=== PATIENT | female | born 1935 | race Caucasian/White ===

== ENCOUNTER 2020-12-28 17:23 | Inpatient (IN) ==
--- NOTE | 2020-12-28 17:34 | Emergency Department Note ---
HPI <Olga Michelle PA-C - Last Filed: 12/28/20 20:45> General Chief complaint: Cold/Flu Symptoms Stated complaint: fatigue, nausea,cough Time Seen by Provider: 12/28/20 17:32 Source: patient Mode of arrival: ambulatory History of Present Illness HPI Narrative: This is an 85-year-old female patient who was sent over from [facility] with reports of O2 saturations 71% on room air. It is noted that they had difficulty getting a good pleth waveform on the patient due to cold extremities. The patient is not complaining of significant shortness of breath. She is complaining of rigors and chills as well as weakness and some mild abdominal pain for the last 4 days. She denies hematuria or dysuria. Denies flank pain. Denies diarrhea, melena or hematochezia. Abdominal surgeries include a hysterectomy, cholecystectomy and appendectomy. She's had some nausea but no vomiting. She's had poor appetite with poor oral intake. She is vaccinated for Covid. No known exposures. She does take blood pressure medication but has been holding this for the last couple of days because she notes that her blood pressures have been low. Related Data Home Medications Medication Instructions Recorded Confirmed vitamins A,C,M-ibkl-knbojc 14,320 1 cap PO BID 03/09/18 12/28/20 unit-226 mg-200 unit capsule Vitamin B 12 1,000 mcg PO .QD 05/25/19 12/28/20 calcium carbonate-vitamin D3 600 1 tab PO BID tab 05/25/19 12/28/20 mg-125 unit tablet cholecalciferol (vitamin D3) 25 1,000 unit PO QHS cap 05/25/19 12/28/20 mcg (1,000 unit) capsule acetaminophen 325 mg capsule 325 mg PO ONCE PRN 11/20/20 12/28/20 Previous Rx's Medication Instructions Recorded fluoxetine 20 mg capsule 20 mg PO QDAY #90 cap 03/27/20 atorvastatin 20 mg tablet 20 mg PO QDAY #90 tab 05/09/20 losartan 100 mg tablet 100 mg PO QDAY #90 tab 05/09/20 metformin 500 mg tablet 500 mg PO BID #180 tab 05/09/20 potassium chloride 10 mEq 20 meq PO BID #360 tab 05/09/20 tablet,extended release triamterene 37.5 1 tab PO QDAY #90 tab 05/09/20 mg-hydrochlorothiazide 25 mg tablet amlodipine 5 mg tablet 5 mg PO QDAY #90 tab 11/19/20 estradiol 1 mg tablet 1 mg PO QDAY #90 tab 12/13/20 Allergies Allergy/AdvReac Type Severity Reaction Status Date / Time Sulfa (Sulfonamide Allergy Mild Rash Verified 12/28/20 17:12 Antibiotics) Review of Systems <Olga Michelle PA-C - Last Filed: 12/28/20 20:45> ROS ROS Narrative: Narrative: All systems ED: reviewed and negative except as stated. 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) Osteoarthritis (Chronic) Metabolic Syndrome X (Chronic) Colon polyp (Chronic) Bronchitis (Chronic) Skin lesion (Chronic) CKD (chronic kidney disease), stage III (Chronic) Fatigue (Chronic) Tremor (Chronic) Incontinence (Chronic) Right hip pain (Acute) Hypertensive kidney disease with CKD stage III (Chronic) Medicare annual wellness visit, subsequent (Acute) Medicare annual wellness visit, subsequent (Acute) Rib pain on left side (Acute) Sepsis (Acute) Acute UTI (Acute) HANNAH (acute kidney injury) (Acute) Acute hyponatremia (Acute) Medical History (Updated 12/29/20 @ 13:27 by Kristin Weber DO) Asymptomatic varicose veins of lower extremity 05/02/10 dictation states "some varicosities" CKD (chronic kidney disease), stage III I am fairly certain this is hypertensive nephrosclerosis. I would not expect the onset of diabetic nephropathy anytime in the next 10 years and at that I do not expect that if she remains well controlled and her diabetic management. Her goal blood pressure should be 130-140/80 systolic and she averages that at present on the losartan and thiazide combination. Colon polyp 2005. HP 2017. Colonic polyp adenomas from 07/08/05 dictation Depression Mild depression. Patient and feel that it is well controlled on Prozac 20 mg daily. Diabetes mellitus, type II Well-controlled on metformin 500 mg twice daily. Diabetic diet recommended. Diabetic foot exam today without concerns Diabetic eye exam up-to-date, no history of retinopathy Dizziness Few episodes over the last few months of dizziness while walking. States diastolic blood pressure is in the 50s sometimes at home. Decrease amlodipine back to 5 mg daily Patient to let me know if symptoms do not improve Fatigue Hormone replacement therapy Hyperlipidemia Well-controlled on Lipitor 20 mg daily. No myalgias. Hypertension, essential Possibly hypotensive occasionally. Decrease amlodipine back to 5 mg daily. Blood pressure goal less than 150/90 to avoid dizziness. Continue on losartan 100 mg daily and triamterenehydrochlorothiazide 37.5-25 mg daily. Low-sodium diet recommended. Hypertensive kidney disease with CKD stage III Stable CKD 3 in association with HTN and normal renal u/s and bland u/a Avoid overtreating blood pressure due to dizziness on higher dose of amlodipine Macular degeneration Medicare annual wellness visit, subsequent Medicare annual wellness visit, subsequent Metabolic syndrome X Metabolic Syndrome X Osteoarthritis Peripheral vascular disease Right hip pain Right trochanteric bursa with tenderness. Steroid injection may be an option if this worsens or persists. Encouraged to stay active and do range of motion exercises of the right hip daily. Ice and heat may also be helpful. Rigors Sciatica of right side Tremor Mild. Hands. Surgical History History of cholecystectomy 03/07- OK but prior adenomas. five year follow up. Hx of cataract surgery keny Hx of colonoscopy 03/07 ok but prior adenomas. 5 year follow up 10/02/16 diverticula and HPx2. Last colonoscopy. Hx of hysterectomy Retained overies from 07/08/05 dictation Hx of knee surgery RT knee scope Hx of laminectomy Lumbar Family History Grandmother paternal Malignant neoplasm of breast Mother History of malignant neoplasm of gastrointestinal tract, Onset Age: 62 Stomach CA 62 y/o Father Peripheral Vascular Disease Social History Smoking Status: Never smoker Alcohol Intake Frequency: holiday/special occasion only Exam <Olga Michelle PA-C - Last Filed: 12/28/20 20:45> Narrative Narrative: General: AOx3, NAD, weak appearing. Pleasant and conversant. HEENT: PERRLA, EOMI, normocephalic. Moist mucous membranes. Normal facies and normal dentition. Respiratory: Lungs clear to auscultation bilaterally. No respiratory distress. Unlabored breathing. Heart: Regular rate and rhythm, no murmurs/clicks/rubs. Abdomen: Non-tender, Non distended, normal bowel tones. No organomegaly. Extremities: Warm and well perfused. No edema. DP 2+ bilaterally. No venous stasis. Neuro: No focal deficits. Cranial nerves II-XII normal. Skin: Warm dry, no rashes or lesions, no cyanosis. Psych: Normal mood and affect Heme/Lymph: No abnormal bruising Course <Olga Michelle PA-C - Last Filed: 12/28/20 20:45> Course Course Narrative: 85-year-old female presents with weakness, rigors and chills Reevaluation(s) Reevaluation #1: Obtain IV access and give 1 L IV fluids Obtain CBC, CMP, lactic acid, blood cultures, UA Obtain chest x-ray and Covid antigen screen Reevaluation #2: Chest x-ray without infectious findings. No pulmonary edema. Covid antigen screen is negative. Urine dip is positive for leukocyte esterase and white blood cells and has been sent for culture. Reevaluation #3: CMP shows an HANNAH with a creatinine of 3.6 and a sodium of 127. Previous creatinine on 11/16/2020 was 1.4. White cell count is 17,000 with a left shift. Urinalysis shows high white blood cell count, many bacteria, leukocyte esterase, and RBCs. Vital Signs Vital signs: Vital Signs Temperature 98.6 F 12/28/20 17:24 Pulse Rate 85 12/28/20 17:24 Respiratory Rate 18 12/28/20 17:24 Blood Pressure 134/56 12/28/20 17:24 Pulse Oximetry (%) 100 12/28/20 17:24 Temperature 97.2 F 12/29/20 18:57 Pulse Rate 94 H 12/29/20 18:57 Respiratory Rate 18 12/29/20 18:57 Blood Pressure 121/52 12/29/20 18:57 Pulse Oximetry (%) 96 12/29/20 18:57 MDM <Olga Michelle PA-C - Last Filed: 12/28/20 20:45> MDM Narrative Medical decision making narrative: Sepsis UTI Acute kidney injury Hyponatremia Given her HANNAH, elevated white blood cell count, rigors and chills and persistent weakness she will need to be admitted for IV antibiotics and rehydration. I have spoken with the hospitalist who has agreed for admission. Lab Data Result diagrams: 12/29/20 05:45 12/29/20 05:45 Labs: Lab Results 12/28/20 12/28/20 12/28/20 Range/Units 18:03 18:03 18:03 WBC 17.0 H (4.5-11.0) K/mcL RBC 3.41 L (3.59-5.38) M/mcL Hgb 9.9 L (11.2-15.7) g/dL Hct 30.3 L (34.1-44.9) % MCV 88.9 (80.0-100.0) fL MCH 29.0 (26.0-34.0) pg MCHC 32.7 (31.0-36.0) g/dL RDW 14.8 H (11.5-14.5) % Plt Count 184 (140-440) K/mcL MPV 11.3 H (7.4-10.4) fL Seg Neutrophils % 89 H (38-78) % Lymphocytes % 6 L (15-49) % Monocytes % (Manual) 5 (1-12) % Platelet Estimate Normal (Normal) RBC Morphology Normal (Normal) Sodium 127 L (133-145) mmol/L Potassium 4.5 (3.3-5.1) mmol/L Chloride 96 (96-108) mmol/L Carbon Dioxide 16 L (22-30) mmol/L Anion Gap 15.0 (8.0-16.0) BUN 54 H (8-23) mg/dL Creatinine 3.6 H (0.6-1.1) mg/dL GFR Calculation 11 Glucose 114 H (70-105) mg/dL Osmolality 291 (280-300) mOSM/kg Calcium 8.0 L (8.6-10.4) mg/dL Total Bilirubin 1.1 H (0.1-1.0) mg/dL AST 30 (<32) U/L ALT 17 (<40) U/L Alkaline Phosphatase 105 (39-117) U/L Total Protein 6.6 (5.9-8.4) gm/dL Albumin 2.7 L (3.2-5.2) gm/dL Globulin 3.9 H (2.2-3.7) gm/dL Albumin/Globulin Ratio 0.7 L (1.0-2.3) Urine Color Urine Appearance (Clear) Urine pH (5.0-9.0) Ur Specific [place] (1.000-1.035) Urine Protein (Negative) mg/dL Urine Glucose (UA) (Negative) mg/dL Urine Ketones (Negative) mg/dL Urine Occult Blood (Negative) mg/dL Urine Nitrate (Negative) Urine Bilirubin (Negative) mg/dL Urine Urobilinogen mg/dL Ur Leukocyte Esterase (Negative) /ug Urine RBC (0-3) /hpf Urine WBC (0-4) /hpf Ur Squamous Epith Cells (0-4) /hpf Urine Bacteria (0) /hpf Urine Mucus (None) /hpf Ur Culture Indicated? Urine Osmolality (80-1000) mOSM/kg Ur Random Sodium mmol/L 12/28/20 12/28/20 12/28/20 Range/Units 18:31 18:31 18:31 WBC (4.5-11.0) K/mcL RBC (3.59-5.38) M/mcL Hgb (11.2-15.7) g/dL Hct (34.1-44.9) % MCV (80.0-100.0) fL MCH (26.0-34.0) pg MCHC (31.0-36.0) g/dL RDW (11.5-14.5) % Plt Count (140-440) K/mcL MPV (7.4-10.4) fL Seg Neutrophils % (38-78) % Lymphocytes % (15-49) % Monocytes % (Manual) (1-12) % Platelet Estimate (Normal) RBC Morphology (Normal) Sodium (133-145) mmol/L Potassium (3.3-5.1) mmol/L Chloride (96-108) mmol/L Carbon Dioxide (22-30) mmol/L Anion Gap (8.0-16.0) BUN (8-23) mg/dL Creatinine (0.6-1.1) mg/dL GFR Calculation Glucose (70-105) mg/dL Osmolality (280-300) mOSM/kg Calcium (8.6-10.4) mg/dL Total Bilirubin (0.1-1.0) mg/dL AST (<32) U/L ALT (<40) U/L Alkaline Phosphatase (39-117) U/L Total Protein (5.9-8.4) gm/dL Albumin (3.2-5.2) gm/dL Globulin (2.2-3.7) gm/dL Albumin/Globulin Ratio (1.0-2.3) Urine Color Ingris Urine Appearance Cloudy A (Clear) Urine pH 5.0 (5.0-9.0) Ur Specific [place] 1.011 (1.000-1.035) Urine Protein 100 A (Negative) mg/dL Urine Glucose (UA) Negative (Negative) mg/dL Urine Ketones Negative (Negative) mg/dL Urine Occult Blood 0.03 (Negative) mg/dL Urine Nitrate Negative (Negative) Urine Bilirubin Negative (Negative) mg/dL Urine Urobilinogen Negative mg/dL Ur Leukocyte Esterase 500 A (Negative) /ug Urine RBC 37 H (0-3) /hpf Urine WBC > 182 H (0-4) /hpf Ur Squamous Epith Cells 14 H (0-4) /hpf Urine Bacteria Many A (0) /hpf Urine Mucus Few A (None) /hpf Ur Culture Indicated? No Urine Osmolality 314 (80-1000) mOSM/kg Ur Random Sodium 21 mmol/L ED POC Tests ED POC Tests: EMILI - SARS Antigen Negative CC TIME <Olga Michelle PA-C - Last Filed: 12/28/20 20:45> Critical Care Time Total Critical Care Time: 31 Attestation: I personally spent a total of 30 minutes of critical care time in obtaining history, performing a physical exam, bedside monitoring of interventions, collecting interpreting tests and discussions with consultants but excluding time spent performing procedures, treating other patients and teaching time. Clinical concern sepsis Intervention IV antibiotics and fluids. Coordination of care for admission. Discharge Plan Patient/Caregiver Discharge Instructions Pt seen by ELECTRIC INSTALLER/PA only: Yes Clinical Impression: Sepsis, Acute UTI, HANNAH (acute kidney injury), Acute hyponatremia Patient Disposition: Xfer As Inpt ([facility]) Condition: Fair Discharge Date/Time: 12/28/20 21:33
--- NOTE | 2020-12-28 17:57 | XRay Report ---
HISTORY: Fatigue, nausea, cough, evaluate for pelvic pneumonia FINDINGS: The lungs are clear and well-expanded, without evidence of pneumonia. The heart size and pulmonary vasculature are normal. No adenopathy is detected. There is no pleural effusion. A mild dextroscoliotic curvature is present in the midthoracic spine. Dense calcification in the mitral annulus. IMPRESSION: No acute abnormality Interpreted and Authenticated by: Sanchez Ortiz 12/28/20
[2020-12-28] MEDS ORDERED: 0.9 % SODIUM CHLORIDE 1,000 ML IV ONE (18:26)
[2020-12-28 19:06] LABS: Hematocrit 30.3 % (34.1-44.9); Hemoglobin 9.9 g/dL (11.2-15.7); Mean Cell Volume 88.9 fL (80.0-100.0); Mean Corpuscular HGB Conc 32.7 g/dL (31.0-36.0); Mean Platelet Volume 11.3 fL (7.4-10.4); Platelet Count 184 K/mcL (140-440); RBC 3.41 M/mcL (3.59-5.38); Red Cell Distribution Width 14.8 % (11.5-14.5)
[2020-12-28 19:22] LABS: ALT/SGPT 17 U/L (<40); AST/SGOT 30 U/L (<32); Albumin 2.7 gm/dL (3.2-5.2); Albumin/Globulin Ratio 0.7 (1.0-2.3); Alkaline Phosphatase 105 U/L (39-117); Bilirubin,Total 1.1 mg/dL (0.1-1.0); Blood Urea Nitrogen 54 mg/dL (8-23); Carbon Dioxide 16 mmol/L (22-30); Chloride 96 mmol/L (96-108); Globulin 3.9 gm/dL (2.2-3.7); Glomerular Filtration Rate 11; Glucose 114 mg/dL (70-105)
[2020-12-28 19:28] LABS: Lymphocytes % 6 % (15-49); Monocytes % (Manual) 5 % (1-12); Platelet Estimate NORMAL (Normal); RBC Morphology NORMAL (Normal); Segmented Neutrophils % 89 % (38-78)
[2020-12-28] MEDS ORDERED: cefTRIAXone 1 GM VIAL IV ONE (19:36)
[2020-12-28 19:49] LABS: Appearance,Urine CLOUDY (Clear); Bacteria,Urine MANY /hpf (0); Bilirubin,Urine Negative (Negative); Color,Urine AMBER; Culture Indicated,Urine No; Glucose,Urine (UA) Negative (Negative); Ketones,Urine Negative (Negative); Leukocyte Esterase,Urine 500 /ug (Negative); Mucus,Urine FEW /hpf; Nitrate,Urine Negative (Negative); Protein,Urine 100 mg/dL (Negative); Specific Gravity,Urine 1.011 (1.000-1.035); Urine Blood 0.03 mg/dL (Negative); Urine RBC 37 /hpf (0-3); Urine Squamous Epithelial Cell 14 /hpf (0-4); Urine WBC > 182 /hpf (0-4); Urobilinogen,Urine Negative
--- NOTE | 2020-12-28 20:40 | Internal Med History&Physical ---
HPI History of Present Illness Patient information: Note initiated : 12/28/20 at 8:34 pm Service Date, if different from initiated Date: [] Patient: Lizeth Thompson a 85 y/o F admitted on for fatigue, nausea,cough. Chief Complaint: [] History of present illness: Ms. Thompson is a 85 year old F Presents to the ED after feeling ill for 3 to 4 days. She has had rigors and chills weakness fatigue malaise poor appetite including poor oral intake. She complains of dysuria. Denies fever. Denies flank pain. In the ED she was evaluated and diagnosed with a UTI as well as acute on chronic kidney injury. She also had hyponatremia. Review of Systems: Pertinent positives as above. Denies headache/fever/chills/vomiting/chest or abdominal pain/cough/dyspnea/diarrhea. Remaining 10 point review of system reviewed negative. 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) Osteoarthritis (Chronic) Metabolic Syndrome X (Chronic) Colon polyp (Chronic) Bronchitis (Chronic) Skin lesion (Chronic) CKD (chronic kidney disease), stage III (Chronic) Fatigue (Chronic) Tremor (Chronic) Incontinence (Chronic) Right hip pain (Acute) Hypertensive kidney disease with CKD stage III (Chronic) Medicare annual wellness visit, subsequent (Acute) Medicare annual wellness visit, subsequent (Acute) Rib pain on left side (Acute) Medical History Asymptomatic varicose veins of lower extremity 05/02/10 dictation states "some varicosities" CKD (chronic kidney disease), stage III I am fairly certain this is hypertensive nephrosclerosis. I would not expect the onset of diabetic nephropathy anytime in the next 10 years and at that I do not expect that if she remains well controlled and her diabetic m anagement. Her goal blood pressure should be 130-140/80 systolic and she averages that at present on the losartan and thiazide combination. Colon polyp 2005. HP 2017. Colonic polyp adenomas from 07/08/05 dictation Depression Mild depression. Patient and feel that it is well controlled on Prozac 20 mg daily. Diabetes mellitus, type II Well-controlled on metformin 500 mg twice daily. Diabetic diet recommended. Diabetic foot exam today without concerns Diabetic eye exam up-to-date, no history of retinopathy Dizziness Few episodes over the last few months of dizziness while walking. States diastolic blood pressure is in the 50s sometimes at home. Decrease amlodipine back to 5 mg daily Patient to let me know if symptoms do not improve Fatigue Hormone replacement therapy Hyperlipidemia Well-controlled on Lipitor 20 mg daily. No myalgias. Hypertension, essential Possibly hypotensive occasionally. Decrease amlodipine back to 5 mg daily. Blood pressure goal less than 150/90 to avoid dizziness. Continue on losartan 100 mg daily and triamterenehydrochlorothiazide 37.5-25 mg daily. Low-sodium diet recommended. Hypertensive kidney disease with CKD stage III Stable CKD 3 in association with HTN and normal renal u/s and bland u/a Avoid overtreating blood pressure due to dizziness on higher dose of amlodipine Macular degeneration Medicare annual wellness visit, subsequent Medicare annual wellness visit, subsequent Metabolic syndrome X Metabolic Syndrome X Osteoarthritis Peripheral vascular disease Right hip pain Right trochanteric bursa with tenderness. Steroid injection may be an option if this worsens or persists. Encouraged to stay active and do range of motion exercises of the right hip daily. Ice and heat may also be helpful. Sciatica of right side Tremor Mild. Hands. Surgical History History of cholecystectomy 03/07- OK but prior adenomas. five year follow up. Hx of cataract surgery keny Hx of colonoscopy 03/07 ok but prior adenomas. 5 year follow up 10/02/16 diverticula and HPx2. Last colonoscopy. Hx of hysterectomy Retained overies from 07/08/05 dictation Hx of knee surgery RT knee scope Hx of laminectomy Lumbar Family History Grandmother paternal Malignant neoplasm of breast Mother History of malignant neoplasm of gastrointestinal tract, Onset Age: 62 Stomach CA 62 y/o Father Peripheral Vascular Disease Social History household members: spouse and family lives independently: Yes marital status: education level: college occupational status: employed occupation: Nurse smoking status: Never smoker alcohol intake frequency: holiday/special occasion only MEDS/ALLERGIES Home Medications and Allergies Home Medications Medication Instructions Recorded Confirmed Type vitamins A,C,W-ovie-srkjka 14,320 1 cap PO BID 03/09/18 11/20/20 History unit-226 mg-200 unit capsule Vitamin B 12 1,000 mcg PO .QD 05/25/19 11/20/20 History calcium carbonate-vitamin D3 600 1 tab PO BID tab 05/25/19 11/20/20 History mg-125 unit tablet cholecalciferol (vitamin D3) 25 1,000 unit PO QHS cap 05/25/19 11/20/20 History mcg (1,000 unit) capsule fluoxetine 20 mg capsule 20 mg PO QDAY #90 cap 03/27/20 11/20/20 Rx atorvastatin 20 mg tablet 20 mg PO QDAY #90 tab 05/09/20 11/20/20 Rx losartan 100 mg tablet 100 mg PO QDAY #90 tab 05/09/20 11/20/20 Rx metformin 500 mg tablet 500 mg PO BID #180 tab 05/09/20 11/20/20 Rx potassium chloride 10 mEq 20 meq PO BID #360 tab 05/09/20 11/20/20 Rx tablet,extended release triamterene 37.5 1 tab PO QDAY #90 tab 05/09/20 11/20/20 Rx mg-hydrochlorothiazide 25 mg tablet amlodipine 5 mg tablet 5 mg PO QDAY #90 tab 11/19/20 11/20/20 Rx acetaminophen 325 mg capsule 325 mg PO ONCE PRN 11/20/20 11/20/20 History estradiol 1 mg tablet 1 mg PO QDAY #90 tab 12/13/20 Rx Allergies Allergy/AdvReac Type Severity Reaction Status Date / Time Sulfa (Sulfonamide Allergy Mild Rash Verified 12/28/20 17:12 Antibiotics) EXAM Constitutional Vitals: Temp Pulse Resp BP Pulse Ox 98.6 F 39 L 18 116/50 95 12/28/20 17:24 12/28/20 20:01 12/28/20 17:24 12/28/20 20:01 12/28/20 20:01 Exam: General: Alert, Awake, No acute Distress Eyes/N/T: EOMI, PERRL, dry MM Head/Neck: neck supple, normocephalic atraumatic CV: RRR, No murmurs, normal s1/s2 Pulm: Clear b/l, no wheezing/rhonchi/rales Abd: soft, nontender, +BS x4 Ext: no clubbing/cyanosis/edema Neuro: Alert, no focal deficits, moves all extremities, CN 2-12 grossly intact, symmetrical strength b/l upper/lower, sensations intact b/l upper/lower Skin: warm/dry DATA Data Completed and Pending Labs: Labs from last 24 hours 12/28/20 12/28/20 12/28/20 18:31 18:03 18:03 WBC 17.0 H RBC 3.41 L Hgb 9.9 L Hct 30.3 L MCV 88.9 MCH 29.0 MCHC 32.7 RDW 14.8 H Plt Count 184 MPV 11.3 H Seg Neutrophils % 89 H Lymphocytes % 6 L Monocytes % (Manual) 5 Platelet Estimate Normal RBC Morphology Normal Sodium 127 L Potassium 4.5 Chloride 96 Carbon Dioxide 16 L Anion Gap 15.0 BUN 54 H Creatinine 3.6 H GFR Calculation 11 Glucose 114 H Calcium 8.0 L Total Bilirubin 1.1 H AST 30 ALT 17 Alkaline Phosphatase 105 Total Protein 6.6 Albumin 2.7 L Globulin 3.9 H Albumin/Globulin Ratio 0.7 L Urine Color Ingris Urine Appearance Cloudy A Urine pH 5.0 Ur Specific [place] 1.011 Urine Protein 100 A Urine Glucose (UA) Negative Urine Ketones Negative Urine Occult Blood 0.03 Urine Nitrate Negative Urine Bilirubin Negative Urine Urobilinogen Negative Ur Leukocyte Esterase 500 A Urine RBC 37 H Urine WBC > 182 H Ur Squamous Epith Cells 14 H Urine Bacteria Many A Urine Mucus Few A Ur Culture Indicated? No A/P Narrative A/P Narrative: A: *UTI: *HANNAH on CKD stage IIIb: 2/2 above + meds *Metabolic acidosis: 2/2 above *Hyponatremia: *DM: *HTN/HLD: on ?norvasc/losartan/hydrochlorothiazide/triamterene *Depression: * P: -IVF -Rocephin pending UC -hold BP meds including diuretics -SSI, hold metformin -sodium labs -clarify home meds -PT OT -ppx: Lovenox DNR Time Spent With Patient Time: Total time spent is greater than 50% in coordination of care (as documented) at patient's floor/unit and/or counseling patient:
[2020-12-28] MEDS ORDERED: cefTRIAXone 1 GM in DEXTROSE 5% IN WATER 50 ML IV SCH (21:46)
[2020-12-28] MEDS ORDERED: DEXTROSE 31 GM ORAL.SUSP PO PRN (21:46)
[2020-12-28] MEDS ORDERED: ONDANSETRON 4 MG/2 ML VIAL IV PRN (21:46)
[2020-12-28] MEDS ORDERED: POTASSIUM CHLORIDE 40 MEQ in DEXTROSE 5% IN WATER 500 ML IV PRN (21:46)
[2020-12-28] MEDS ORDERED: POLYETHYLENE GLYCOL 3350 17 GM PACKET PO PRN (21:46)
[2020-12-28] MEDS ORDERED: POTASSIUM CHLORIDE 20 MEQ TABLET PO PRN ×2 (21:46)
[2020-12-28] MEDS ORDERED: MAGNESIUM SULFATE 2 GM/50 ML BAG IV PRN (21:46)
[2020-12-28] MEDS ORDERED: SENNOSIDES 1 TABLET PO PRN (21:46)
[2020-12-28] MEDS ORDERED: DEXTROSE 50% 50 ML VIAL IV PRN (21:46)
[2020-12-28] MEDS ORDERED: METOCLOPRAMIDE 10 MG/2 ML VIAL IV PRN (21:46)
[2020-12-28] MEDS ORDERED: ACETAMINOPHEN 325 MG TABLET PO PRN (21:46)
[2020-12-28] MEDS: 0.9 % SODIUM CHLORIDE 10 ML SYRINGE IV SCH (22:23)
[2020-12-28] MEDS: 0.9 % SODIUM CHLORIDE 1,000 ML IV SCH (22:31)
[2020-12-28] MEDS: DOCUSATE SODIUM 100 MG CAPSULE PO SCH (22:36)
[2020-12-28] MEDS: INSULIN LISPRO 1 UNIT/0.01 ML UNIT SQ SCH (22:36)
[2020-12-29 00:47] LABS: Appearance,Urine CLOUDY (Clear); Bilirubin,Urine Negative (Negative); Color,Urine YELLOW; Culture Indicated,Urine yes; Glucose,Urine (UA) Negative (Negative); Ketones,Urine Negative (Negative); Leukocyte Esterase,Urine 500 /ug (Negative); Mucus,Urine FEW /hpf; Nitrate,Urine Negative (Negative); Protein,Urine 30 mg/dL (Negative); Specific Gravity,Urine 1.008 (1.000-1.035); Urine RBC 11 /hpf (0-3); Urine Squamous Epithelial Cell 2 /hpf (0-4); Urine WBC > 182 /hpf (0-4); Urobilinogen,Urine Negative
[2020-12-29] MEDS: 0.9 % SODIUM CHLORIDE 1,000 ML IV SCH ×3 (03:08→15:09)
[2020-12-29 05:29] LABS: Appearance,Urine HAZY (Clear); Bilirubin,Urine Negative (Negative); Color,Urine YELLOW; Culture Indicated,Urine yes; Glucose,Urine (UA) Negative (Negative); Ketones,Urine Negative (Negative); Leukocyte Esterase,Urine 500 /ug (Negative); Mucus,Urine FEW /hpf; Nitrate,Urine Negative (Negative); Protein,Urine 30 mg/dL (Negative); Specific Gravity,Urine 1.008 (1.000-1.035); Urine Blood 0.03 mg/dL (Negative); Urine Hyaline Cast 3 /lph (0-2); Urine RBC 8 /hpf (0-3); Urine Squamous Epithelial Cell 1 /hpf (0-4); Urine WBC 127 /hpf (0-4); Urobilinogen,Urine Negative
[2020-12-29] MEDS: 0.9 % SODIUM CHLORIDE 10 ML SYRINGE IV SCH ×3 (06:27→21:24)
[2020-12-29] MEDS: INSULIN LISPRO 1 UNIT/0.01 ML UNIT SQ SCH ×4 (07:30→21:24)
[2020-12-29 07:57] LABS: Basophils # (Auto) 0.05 K/mcL (0.00-0.30); Basophils % (Auto) 0.3 % (0.0-2.0); Eosinophils # (Auto) 0.11 K/mcL (0.00-0.70); Eosinophils % (Auto) 0.7 % (0.0-7.0); Hematocrit 27.6 % (34.1-44.9); Hemoglobin 8.9 g/dL (11.2-15.7); Lymphocytes # (Auto) 1.06 K/mcL (1.50-4.80); Mean Cell Volume 87.9 fL (80.0-100.0); Mean Corpuscular HGB Conc 32.2 g/dL (31.0-36.0); Mean Platelet Volume 11.6 fL (7.4-10.4); Monocytes # (Auto) 0.96 K/mcL (0.10-0.90); Monocytes % (Auto) 6.4 % (1.0-12.0); Neutrophils % (Auto) 85.6 % (38.0-78.0); Platelet Count 183 K/mcL (140-440); RBC 3.14 M/mcL (3.59-5.38); Red Cell Distribution Width 14.7 % (11.5-14.5); WBC 15.1 K/mcL (4.5-11.0)
--- NOTE | 2020-12-29 08:19 | Internal Med Progress Note ---
SUBJECTIVE Subjective Patient information: Note initiated : 12/29/20 at 8:17 am Service Date, if different from initiated Date: [] Patient: Lizeth Thompson 85 y/o F admitted on 12/28/20 for fatigue, nausea,cough. Chief Complaint: [] Interval history: Chief Complaint: [] History of present illness: Ms. Thompson is a 85 year old F Presents to the ED after feeling ill for 3 to 4 days. She has had rigors and chills weakness fatigue malaise poor appetite including poor oral intake. She complains of dysuria. Denies fever. Denies flank pain. In the ED she was evaluated and diagnosed with a UTI as well as acute on chronic kidney injury. She also had hyponatremia. 12/29 Feeling a little better today. Did not sleep well because of interruptions. Blood culture with gram-negative bacillus, urine culture pending. Review of Systems: denies headache/fever/chills/nausea/vomiting/chest or abdominal pain/cough/dyspnea/diarrhea. Otherwise see above. Constitutional Vitals: Vital Signs Temp Pulse Resp BP Pulse Ox 96.9 F L 56 L 14 94/51 95 12/29/20 07:00 12/29/20 07:00 12/29/20 07:00 12/29/20 07:00 12/29/20 07:00 Period Temp Pulse Resp BP Sys/Martínez Pulse Ox Last 24 Hr 96.9 F-99.1 F 39-87 14-22 94-139/42-90 77-100 Intake and Output 12/28/20 12/29/20 12/29/20 21:59 05:59 13:59 Intake Total 1000 388 Output Total 100 125 Balance 900 263 Weight 82.809 kg Intake & Output: Intake & Output 12/28/20 12/29/20 12/29/20 21:59 05:59 13:59 Intake Total 1000 388 Output Total 100 125 Balance 900 263 Weight 82.809 kg Intake: IV 1000 388 Sodium Chloride 0.9% 1,000 ml @ 1000 388 84 mls/hr IV .[id number] [facility] Rx#: [id number] Output: Void Amount 100 125 Other: Urine Color Light Ingris Light Ingris Urine Odor Strong Exam: General: Alert, Awake, No acute Distress Eyes/N/T: EOMI, Head/Neck: neck supple, CV: RRR, No murmurs, Pulm: Clear b/l, no wheezing/rhonchi/rales Abd: soft, nontender, +BS x4 Ext: no clubbing/cyanosis/edema Neuro: Alert, no focal deficits, moves all extremities, Skin: warm/dry OBJ DATA Labs CBC & Chem 7: 12/29/20 05:45 12/29/20 05:45 Labs: Abnormal Lab Results 12/29/20 12/29/20 12/28/20 05:45 03:53 23:51 WBC 15.1 H RBC 3.14 L Hgb 8.9 L Hct 27.6 L RDW 14.7 H MPV 11.6 H Neut % (Auto) 85.6 H Lymph % (Auto) 7.0 L Lymph # (Auto) 1.06 L [place] # (Auto) 0.96 H Seg Neutrophils % Lymphocytes % Absolute Neutrophils 12.88 H Sodium Carbon Dioxide BUN Creatinine Glucose Calcium Total Bilirubin Albumin Globulin Albumin/Globulin Ratio Urine Appearance Hazy A Cloudy A Urine Protein 30 A 30 A Ur Leukocyte Esterase 500 A 500 A Urine RBC 8 H 11 H Urine WBC 127 H > 182 H Ur Squamous Epith Cells Urine Bacteria Hyaline Casts 3 H Urine Mucus Few A Few A 12/28/20 12/28/20 12/28/20 18:31 18:03 18:03 WBC 17.0 H RBC 3.41 L Hgb 9.9 L Hct 30.3 L RDW 14.8 H MPV 11.3 H Neut % (Auto) Lymph % (Auto) Lymph # (Auto) [place] # (Auto) Seg Neutrophils % 89 H Lymphocytes % 6 L Absolute Neutrophils Sodium 127 L Carbon Dioxide 16 L BUN 54 H Creatinine 3.6 H Glucose 114 H Calcium 8.0 L Total Bilirubin 1.1 H Albumin 2.7 L Globulin 3.9 H Albumin/Globulin Ratio 0.7 L Urine Appearance Cloudy A Urine Protein 100 A Ur Leukocyte Esterase 500 A Urine RBC 37 H Urine WBC > 182 H Ur Squamous Epith Cells 14 H Urine Bacteria Many A Hyaline Casts Urine Mucus Few A Meds: Medications Acetaminophen (Acetaminophen 325 Mg Tablet) 650 mg PO Q6HP PRN PRN Reason: PAIN/FEVER > 101 Ceftriaxone Sodium (Ceftriaxone 1 Gm Vial) 1 gm IV Q24H EITAN Dextrose (Dextrose 50% 50 Ml Vial) 0 ml IV UD PRN PRN Reason: Hypoglycemia Diagnostic Test (Pha) (Accu-Chek 1 Each Strip) 1 each [facility] Last Admin: 12/29/20 07:30 Dose: 1 each Documented by: Docusate Sodium (Docusate Sodium 100 Mg Capsule) 100 mg PO BID [facility] Last Admin: 12/28/20 22:36 Dose: Not Given Documented by: Enoxaparin Sodium (Enoxaparin 30 Mg/0.3 Ml Syringe) 30 mg SQ DAILY [facility] Glucose (Dextrose 31 Gm Oral.Susp) 15 gm PO PRN PRN PRN Reason: Hypoglycemia Potassium Chloride 40 meq/ (Dextrose) 520 mls @ 130 mls/hr IV UD PRN PRN Reason: Potassium < 3 Magnesium Sulfate (Magnesium Sulfate) 2 gm in 50 mls @ 50 mls/hr IV UD PRN PRN Reason: Magnesium </= 1.6 Sodium Chloride (Sodium Chloride 0.9%) 1,000 mls @ 84 mls/hr IV .[id number] [facility] Stop: 12/29/20 21:34 Last Admin: 12/29/20 03:08 Dose: 84 mls/hr Documented by: Insulin Human Lispro (Insulin Lispro 1 Unit/0.01 Ml Unit) 0 unit SQ [facility]; Protocol Last Admin: 12/29/20 07:30 Dose: Not Given Documented by: Metoclopramide HCl (Metoclopramide 10 Mg/2 Ml Vial) 10 mg IV Q6HP PRN PRN Reason: Nausea And Vomiting Ondansetron HCl (Ondansetron 4 Mg/2 Ml Vial) 4 mg IV Q4HP PRN PRN Reason: Nausea And Vomiting Polyethylene Glycol (Polyethylene Glycol 3350 17 Gm Packet) 17 gm PO DAILYP PRN PRN Reason: Constipation Potassium Chloride (Potassium Chloride 20 Meq Tablet) 40 meq PO UD PRN PRN Reason: Potssium is 3-3.5 Potassium Chloride (Potassium Chloride 20 Meq Tablet) 40 meq PO UD PRN PRN Reason: Potassium < 3 Senna (Sennosides 1 Tablet) 2 tab PO DAILYP PRN PRN Reason: Constipation Sodium Chloride (0.9 % Sodium Chloride 10 Ml Syringe) 10 ml IV Q8 [facility] Last Admin: 12/29/20 06:27 Dose: Not Given Documented by: A/P Narrative A/P Narrative: A: *UTI: -Leukocytosis slowly improving *Bacteremia(GNB): 2/2 above *HANNAH on CKD stage IIIb: 2/2 above + meds -no change *Anemia, chronic: *Metabolic acidosis: 2/2 above *Hyponatremia/hypomag: improved *DM: A1c 5.6 in October *HTN/HLD: on ?norvasc/losartan/hydrochlorothiazide/triamterene *Depression: * P: -IVF -renal us -Rocephin pending UC -hold BP meds including diuretics for low BP -SSI, hold metformin -PT OT -CM for placement needs -ppx: Lovenox DNR Time Spent With Patient Time: Total time spent is greater than 50% in coordination of care (as documented) at patient's floor/unit and/or counseling patient:
[2020-12-29 08:22] LABS: ALT/SGPT 14 U/L (<40); AST/SGOT 27 U/L (<32); Albumin 2.3 gm/dL (3.2-5.2); Albumin/Globulin Ratio 0.6 (1.0-2.3); Alkaline Phosphatase 140 U/L (39-117); Bilirubin,Direct 0.5 mg/dL (<0.3); Bilirubin,Total 0.8 mg/dL (0.1-1.0); Blood Urea Nitrogen 60 mg/dL (8-23); Calcium 7.5 mg/dL (8.6-10.4); Carbon Dioxide 14 mmol/L (22-30); Chloride 100 mmol/L (96-108); Globulin 3.7 gm/dL (2.2-3.7); Glomerular Filtration Rate 11; Glucose 99 mg/dL (70-105); Lactate Dehydrogenase 230 U/L (135-225); Phosphorous 3.2 mg/dL (2.5-4.5); Triglycerides 156 mg/dL (<150); Uric Acid 7.6 mg/dL (2.5-8.0)
[2020-12-29] MEDS ORDERED: MAGNESIUM SULFATE 2 GM/50 ML BAG IV ONE (08:24)
[2020-12-29] MEDS: ENOXAPARIN 30 MG/0.3 ML SYRINGE SQ SCH (09:06)
[2020-12-29] MEDS: DOCUSATE SODIUM 100 MG CAPSULE PO SCH ×3 (09:06→21:12)
[2020-12-29] MEDS: ATORVASTATIN 20 MG TABLET PO SCH (09:06)
[2020-12-29] MEDS: SODIUM BICARBONATE 650 MG TABLET PO SCH ×3 (09:06→21:08)
[2020-12-29] MEDS: FLUoxetine HCL 20 MG CAPSULE PO SCH (09:06)
[2020-12-29] MEDS: cefTRIAXone 1 GM VIAL IV SCH (09:09)
--- NOTE | 2020-12-29 16:38 | Ultrasound Report ---
CLINICAL INFORMATION: hakeem no improvement COMPARISON: None. FINDINGS: Both kidneys are normal and symmetric in size, position, configuration and echotexture: The right is 12.1 x 4.8 cm and the left is 12.1 x 6.4 cm. No stones, solid lesions or hydronephrosis. Urinary bladder volume is 113 cc. The patient was unable to void. No bladder lesions IMPRESSION: Normal kidneys and urinary bladder Interpreted and Authenticated by: Vin Hall 12/29/20
[2020-12-30] MEDS: 0.9 % SODIUM CHLORIDE 10 ML SYRINGE IV SCH ×3 (05:20→20:16)
[2020-12-30 07:44] LABS: Basophils # (Auto) 0.04 K/mcL (0.00-0.30); Basophils % (Auto) 0.4 % (0.0-2.0); Eosinophils # (Auto) 0.18 K/mcL (0.00-0.70); Eosinophils % (Auto) 1.6 % (0.0-7.0); Hematocrit 28.5 % (34.1-44.9); Hemoglobin 8.6 g/dL (11.2-15.7); Lymphocytes # (Auto) 0.89 K/mcL (1.50-4.80); Mean Cell Volume 93.4 fL (80.0-100.0); Mean Corpuscular HGB Conc 30.2 g/dL (31.0-36.0); Mean Platelet Volume 10.7 fL (7.4-10.4); Monocytes # (Auto) 0.71 K/mcL (0.10-0.90); Monocytes % (Auto) 6.4 % (1.0-12.0); Neutrophils % (Auto) 83.6 % (38.0-78.0); Platelet Count 190 K/mcL (140-440); RBC 3.05 M/mcL (3.59-5.38); WBC 11.2 K/mcL (4.5-11.0)
[2020-12-30] MEDS: INSULIN LISPRO 1 UNIT/0.01 ML UNIT SQ SCH ×4 (08:12→20:12)
[2020-12-30] MEDS: cefTRIAXone 1 GM VIAL IV SCH (08:13)
[2020-12-30] MEDS: ATORVASTATIN 20 MG TABLET PO SCH (08:13)
[2020-12-30] MEDS: FLUoxetine HCL 20 MG CAPSULE PO SCH (08:13)
[2020-12-30] MEDS: ENOXAPARIN 30 MG/0.3 ML SYRINGE SQ SCH (08:13)
[2020-12-30] MEDS: DOCUSATE SODIUM 100 MG CAPSULE PO SCH ×2 (08:13→20:12)
--- NOTE | 2020-12-30 08:48 | Internal Med Progress Note ---
SUBJECTIVE Subjective Patient information: Note initiated : 12/30/20 at 8:46 am Service Date, if different from initiated Date: [] Patient: Lizeth Thompson 85 y/o F admitted on 12/28/20 for fatigue, nausea,cough. Chief Complaint: [] Interval history: Chief Complaint: [] History of present illness: Ms. Thompson is a 85 year old F Presents to the ED after feeling ill for 3 to 4 days. She has had rigors and chills weakness fatigue malaise poor appetite including poor oral intake. She complains of dysuria. Denies fever. Denies flank pain. In the ED she was evaluated and diagnosed with a UTI as well as acute on chronic kidney injury. She also had hyponatremia. 12/29 Feeling a little better today. Did not sleep well because of interruptions. Blood culture with gram-negative bacillus, urine culture pending. 12/30 She is sitting in chair at bedside eating breakfast. Feeling better today. Urine cultures gram-negative bacillus awaiting final ID. Sodium better. Leukocytosis much improved. Renal function started to improve. Review of Systems: denies headache/fever/chills/nausea/vomiting/chest or abdominal pain/cough/dyspnea/diarrhea. Otherwise see above. Constitutional Vitals: Vital Signs Temp Pulse Resp BP Pulse Ox 97.4 F 66 16 114/61 98 12/30/20 07:00 12/30/20 07:00 12/30/20 07:00 12/30/20 07:00 12/30/20 07:00 Period Temp Pulse Resp BP Sys/Martínez Pulse Ox Last 24 Hr 96.9 F-97.6 F 61-94 16-18 96-121/51-61 96-98 Intake and Output 12/29/20 12/30/20 12/30/20 21:59 05:59 13:59 Intake Total 1000 1480 Output Total 800 Balance 1000 680 Weight 85.984 kg Intake & Output: Intake & Output 12/29/20 12/30/20 12/30/20 21:59 05:59 13:59 Intake Total 1000 1480 Output Total 800 Balance 1000 680 Weight 85.984 kg Intake: IV 1000 1000 Sodium Chloride 0.9% 1,000 ml @ 1000 1000 84 mls/hr IV .[id number] [facility] Rx#: [id number] Oral 0 480 Output: Void Amount 800 Other: Urine Appearance Cloudy Urine Color Dark Ingris Urine Odor Normal # Voids 1 Exam: General: Alert, Awake, No acute Distress Eyes/N/T: EOMI, Head/Neck: neck supple, CV: RRR, No murmurs, Pulm: Clear b/l, no wheezing/rhonchi/rales Abd: soft, nontender, +BS x4 Ext: no clubbing/cyanosis/edema Neuro: Alert, no focal deficits, moves all extremities, Skin: warm/dry OBJ DATA Labs CBC & Chem 7: 12/30/20 05:46 12/30/20 05:46 Labs: Abnormal Lab Results 12/30/20 12/29/20 12/29/20 05:46 05:45 05:45 WBC 11.2 H 15.1 H RBC 3.05 L 3.14 L Hgb 8.6 L 8.9 L Hct 28.5 L 27.6 L MCHC 30.2 L RDW 15.0 H 14.7 H MPV 10.7 H 11.6 H Neut % (Auto) 83.6 H 85.6 H Lymph % (Auto) 8.0 L 7.0 L Lymph # (Auto) 0.89 L 1.06 L [place] # (Auto) 0.96 H Seg Neutrophils % Lymphocytes % Absolute Neutrophils 9.34 H 12.88 H Sodium 130 L Carbon Dioxide 14 L BUN 60 H Creatinine 3.6 H Glucose Calcium 7.5 L Magnesium 1.1 L Total Bilirubin Direct Bilirubin 0.5 H Alkaline Phosphatase 140 H Lactate Dehydrogenase 230 H Albumin 2.3 L Globulin Albumin/Globulin Ratio 0.6 L Triglycerides 156 H Urine Appearance Urine Protein Ur Leukocyte Esterase Urine RBC Urine WBC Ur Squamous Epith Cells Urine Bacteria Hyaline Casts Urine Mucus 12/29/20 12/28/20 12/28/20 03:53 23:51 18:31 WBC RBC Hgb Hct MCHC RDW MPV Neut % (Auto) Lymph % (Auto) Lymph # (Auto) [place] # (Auto) Seg Neutrophils % Lymphocytes % Absolute Neutrophils Sodium Carbon Dioxide BUN Creatinine Glucose Calcium Magnesium Total Bilirubin Direct Bilirubin Alkaline Phosphatase Lactate Dehydrogenase Albumin Globulin Albumin/Globulin Ratio Triglycerides Urine Appearance Hazy A Cloudy A Cloudy A Urine Protein 30 A 30 A 100 A Ur Leukocyte Esterase 500 A 500 A 500 A Urine RBC 8 H 11 H 37 H Urine WBC 127 H > 182 H > 182 H Ur Squamous Epith Cells 14 H Urine Bacteria Many A Hyaline Casts 3 H Urine Mucus Few A Few A Few A 12/28/20 12/28/20 18:03 18:03 WBC 17.0 H RBC 3.41 L Hgb 9.9 L Hct 30.3 L MCHC RDW 14.8 H MPV 11.3 H Neut % (Auto) Lymph % (Auto) Lymph # (Auto) [place] # (Auto) Seg Neutrophils % 89 H Lymphocytes % 6 L Absolute Neutrophils Sodium 127 L Carbon Dioxide 16 L BUN 54 H Creatinine 3.6 H Glucose 114 H Calcium 8.0 L Magnesium Total Bilirubin 1.1 H Direct Bilirubin Alkaline Phosphatase Lactate Dehydrogenase Albumin 2.7 L Globulin 3.9 H Albumin/Globulin Ratio 0.7 L Triglycerides Urine Appearance Urine Protein Ur Leukocyte Esterase Urine RBC Urine WBC Ur Squamous Epith Cells Urine Bacteria Hyaline Casts Urine Mucus Meds: Medications Acetaminophen (Acetaminophen 325 Mg Tablet) 650 mg PO Q6HP PRN PRN Reason: PAIN/FEVER > 101 Atorvastatin Calcium (Atorvastatin 20 Mg Tablet) 20 mg PO QDAY [facility] Last Admin: 12/30/20 08:13 Dose: 20 mg Documented by: Ceftriaxone Sodium (Ceftriaxone 1 Gm Vial) 1 gm IV Q24H [facility] Last Admin: 12/30/20 08:13 Dose: 1 gm Documented by: Dextrose (Dextrose 50% 50 Ml Vial) 0 ml IV UD PRN PRN Reason: Hypoglycemia Diagnostic Test (Pha) (Accu-Chek 1 Each Strip) 1 each FS ACHS [facility] Last Admin: 12/30/20 08:12 Dose: 1 each Documented by: Docusate Sodium (Docusate Sodium 100 Mg Capsule) 100 mg PO BID [facility] Last Admin: 12/30/20 08:13 Dose: 100 mg Documented by: Enoxaparin Sodium (Enoxaparin 30 Mg/0.3 Ml Syringe) 30 mg SQ DAILY [facility] Last Admin: 12/30/20 08:13 Dose: 30 mg Documented by: Fluoxetine HCl (Fluoxetine Hcl 20 Mg Capsule) 20 mg PO QDAY [facility] Last Admin: 12/30/20 08:13 Dose: 20 mg Documented by: Glucose (Dextrose 31 Gm Oral.Susp) 15 gm PO PRN PRN PRN Reason: Hypoglycemia Potassium Chloride 40 meq/ (Dextrose) 520 mls @ 130 mls/hr IV UD PRN PRN Reason: Potassium < 3 Magnesium Sulfate (Magnesium Sulfate) 2 gm in 50 mls @ 50 mls/hr IV UD PRN PRN Reason: Magnesium </= 1.6 Insulin Human Lispro (Insulin Lispro 1 Unit/0.01 Ml Unit) 0 unit SQ ACHS [facility]; Protocol Last Admin: 12/30/20 08:12 Dose: Not Given Documented by: Metoclopramide HCl (Metoclopramide 10 Mg/2 Ml Vial) 10 mg IV Q6HP PRN PRN Reason: Nausea And Vomiting Ondansetron HCl (Ondansetron 4 Mg/2 Ml Vial) 4 mg IV Q4HP PRN PRN Reason: Nausea And Vomiting Polyethylene Glycol (Polyethylene Glycol 3350 17 Gm Packet) 17 gm PO DAILYP PRN PRN Reason: Constipation Potassium Chloride (Potassium Chloride 20 Meq Tablet) 40 meq PO UD PRN PRN Reason: Potssium is 3-3.5 Potassium Chloride (Potassium Chloride 20 Meq Tablet) 40 meq PO UD PRN PRN Reason: Potassium < 3 Senna (Sennosides 1 Tablet) 2 tab PO DAILYP PRN PRN Reason: Constipation Sodium Chloride (0.9 % Sodium Chloride 10 Ml Syringe) 10 ml IV Q8 [facility] Last Admin: 12/30/20 05:20 Dose: 10 ml Documented by: A/P Narrative A/P Narrative: A: *UTI(GNB): -Leukocytosis improving *Bacteremia(GNB): 2/2 above *HANNAH on CKD stage IIIb: 2/2 above + meds -renal us neg -mild improvement *Anemia, chronic: + dilutional effect *Metabolic acidosis: 2/2 above *Hyponatremia/hypomag: improved *DM: A1c 5.6 in October *HTN/HLD: on norvasc/losartan/hydrochlorothiazide/triamterene *Depression: P: -IVF d/c -Rocephin pending UC. abx for 7 days -hold BP meds including diuretics for low BP -SSI, hold metformin -PT OT -CM for placement needs -ppx: Lovenox DNR Time Spent With Patient Time: Total time spent is greater than 50% in coordination of care (as documented) at patient's floor/unit and/or counseling patient:
[2020-12-30 09:13] LABS: ALT/SGPT 18 U/L (<40); AST/SGOT 38 U/L (<32); Albumin/Globulin Ratio 0.5 (1.0-2.3); Alkaline Phosphatase 120 U/L (39-117); Bilirubin,Direct 0.4 mg/dL (<0.3); Bilirubin,Total 0.6 mg/dL (0.1-1.0); Blood Urea Nitrogen 60 mg/dL (8-23); Calcium 7.4 mg/dL (8.6-10.4); Carbon Dioxide 14 mmol/L (22-30); Chloride 103 mmol/L (96-108); Globulin 3.9 gm/dL (2.2-3.7); Glomerular Filtration Rate 14; Glucose 108 mg/dL (70-105); Lactate Dehydrogenase 183 U/L (135-225); Phosphorous 3.8 mg/dL (2.5-4.5); Triglycerides 182 mg/dL (<150); Uric Acid 7.3 mg/dL (2.5-8.0)
[2020-12-30] MEDS: SODIUM BICARBONATE 650 MG TABLET PO SCH ×3 (10:10→20:16)
--- NOTE | 2020-12-30 11:41 | Discharge Summary ---
Discharge Provider Provider Patient information: Note initiated : 12/30/20 at 11:40 am Service Date, if different from initiated Date: [] Patient: Lizeth Thompson 85 y/o F admitted on 12/28/20 for fatigue, nausea,cough. Chief Complaint: [] Date of admission: 12/28/20 21:31 Discharge date: 12/31/20 Primary care physician: Vin Tran DO Consults: 12/28/20 Consult to Physician [CONS] Stat Comment: Consulting Provider: lJ Cardenas Reason For Exam: Physician to Consult Discharge Meds Discharge Medications Home Medications vitamins A,C,B-ewjl-tcgzuj 14,320 unit-226 mg-200 unit capsule 1 cap PO BID 03/09/18 [History Confirmed 12/28/20 Last Taken 12/24/20 21:00] Vitamin B 12 1,000 mcg PO .QD 05/25/19 [History Confirmed 12/28/20 Last Taken 12/24/20 21:00] calcium carbonate-vitamin D3 600 mg-125 unit tablet 1 tab PO BID tab 05/25/19 [History Confirmed 12/28/20 Last Taken 12/24/20 21:00] cholecalciferol (vitamin D3) 25 mcg (1,000 unit) capsule 1,000 unit PO QHS cap 05/25/19 [History Confirmed 12/28/20 Last Taken 12/24/20 21:00] fluoxetine 20 mg capsule 20 mg PO QDAY #90 cap 03/27/20 [Rx Confirmed 12/28/20 Last Taken 12/24/20 09:00] atorvastatin 20 mg tablet 20 mg PO QDAY #90 tab 05/09/20 [Rx Confirmed 12/28/20 Last Taken 12/24/20 21:00] acetaminophen 325 mg capsule 325 mg PO ONCE PRN 11/20/20 [History Confirmed 12/28/20 Last Taken 12/16/20 21:00] estradiol 1 mg tablet 1 mg PO QDAY #90 tab 12/13/20 [Rx Confirmed 12/28/20 Last Taken 12/24/20 09:00] glipizide 2.5 mg PO QDAY #30 tab 12/30/20 [Rx Last Taken Unknown] amlodipine 2.5 mg PO QDAY #90 tab 12/31/20 [Rx Last Taken Unknown] levofloxacin 500 mg PO Q48H #2 tab 12/31/20 [Rx Last Taken Unknown] COURSE Hospital Course Hospital course: History of present illness: Ms. Thompson is a 85 year old F Presents to the ED after feeling ill for 3 to 4 days. She has had rigors and chills weakness fatigue malaise poor appetite including poor oral intake. She complains of dysuria. Denies fever. Denies flank pain. In the ED she was evaluated and diagnosed with a UTI as well as acute on chronic kidney injury. She also had hyponatremia. 12/29 Feeling a little better today. Did not sleep well because of interruptions. Blood culture with gram-negative bacillus, urine culture pending. 12/30 She is sitting in chair at bedside eating breakfast. Feeling better today. Urine cultures gram-negative bacillus awaiting final ID. Sodium better. Leukocytosis much improved. Renal function started to improve. 12/31 Patient doing well. Stable for discharge. A/P Narrative: A: *UTI(): *Bacteremia(E. Coli): 2/2 above *HANNAH on CKD stage IIIb: 2/2 above + meds -renal us neg *Anemia, chronic: + dilutional effect *Metabolic acidosis: 2/2 above *Hyponatremia/hypomag: improved *DM: A1c 5.6 in October -We hold Metformin for now due to the creatinine and start low-dose glipizide *HTN/HLD: on norvasc/losartan/hydrochlorothiazide/triamterene -will only restart Norvasc at low dose follow-up with PCP while monitoring blood pressure daily *Depression: Discharge diagnosis: Gram-negative bacillus UTI and bacteremia acute kidney injury Secondary discharge diagnosis: Electrolyte abnormalities diabetes hypertension depression Time Spent with Patient Time attestation: Total time spent providing and/or coordinating discharge services: Time spent: Greater than 30 minutes EXAM Constitutional Vitals: Temp Pulse Resp BP Pulse Ox 97.1 F 61 18 110/58 99 12/30/20 11:00 12/30/20 11:00 12/30/20 11:00 12/30/20 11:00 12/30/20 11:00 Discharge Data Data Completed and Pending Labs on day of discharge: Labs from last 24 hours 12/30/20 12/30/20 05:46 05:46 WBC 11.2 H RBC 3.05 L Hgb 8.6 L Hct 28.5 L MCV 93.4 MCH 28.2 MCHC 30.2 L RDW 15.0 H Plt Count 190 MPV 10.7 H Neut % (Auto) 83.6 H Lymph % (Auto) 8.0 L [place] % (Auto) 6.4 Eos % (Auto) 1.6 Baso % (Auto) 0.4 Lymph # (Auto) 0.89 L [place] # (Auto) 0.71 Eos # (Auto) 0.18 Baso # (Auto) 0.04 Absolute Neutrophils 9.34 H Sodium 132 L Potassium 4.1 Chloride 103 Carbon Dioxide 14 L Anion Gap 15.0 BUN 60 H Creatinine 2.9 H GFR Calculation 14 Glucose 108 H Uric Acid 7.3 Calcium 7.4 L Phosphorus 3.8 Magnesium 1.8 Total Bilirubin 0.6 Direct Bilirubin 0.4 H GGT 25 AST 38 H ALT 18 Alkaline Phosphatase 120 H Lactate Dehydrogenase 183 Total Protein 5.9 Albumin 2.0 L Globulin 3.9 H Albumin/Globulin Ratio 0.5 L Triglycerides 182 H Preliminary micro results at discharge 12/29/20 03:53 Urine Culture - Preliminary Urine - Clean Void Mid-Stream 12/28/20 18:10 Blood Culture - Preliminary Blood 12/28/20 18:03 Blood Culture - Preliminary Blood Gram negative bacillus Discharge Plan Patient/Caregiver Discharge Instructions Activity: increase activity as tolerated Diet: Consistent Carbohydrate Activity Restrictions/Additional Instructions: Metformin held due to creatinine elevation, started low-dose glipizide. Stopped diuretics and losartan due to acute kidney injury, restarted Norvasc at lower dose. Patient to monitor blood pressure twice daily and bring log to PCP. Prescriptions: New glipizide 2.5 mg tablet extended release 24hr 2.5 mg PO QDAY Qty: 30 RF: 0 levofloxacin 500 mg tablet 500 mg PO Q48H Qty: 2 RF: 0 Continued fluoxetine 20 mg capsule 20 mg PO QDAY Qty: 90 RF: 3 atorvastatin 20 mg tablet 20 mg PO QDAY Qty: 90 RF: 3 estradiol 1 mg tablet 1 mg PO QDAY Qty: 90 RF: 3 vitamins A,C,O-jslc-nwmvic [PreserVision AREDS] 14,320-226-200 qbmy-hh-yrrf capsule 1 cap PO BID RF: 0 cholecalciferol (vitamin D3) 25 mcg (1,000 unit) capsule 1,000 unit PO QHS RF: 0 Vitamin B 12 1,000 mcg PO .QD RF: 0 acetaminophen 325 mg capsule 325 mg PO ONCE PRN (Reason: Pain) RF: 0 calcium carbonate-vitamin D3 600-125 mg-unit tablet 1 tab PO BID RF: 0 Changed amlodipine 5 mg tablet 2.5 mg PO QDAY Qty: 90 RF: 3 Discontinued potassium chloride 10 mEq tablet extended release 20 meq PO BID Qty: 360 RF: 3 triamterene-hydrochlorothiazid 37.5-25 mg tablet 1 tab PO QDAY Qty: 90 RF: 3 metformin 500 mg tablet 500 mg PO BID Qty: 180 RF: 3 losartan 100 mg tablet 100 mg PO QDAY Qty: 90 RF: 3 Follow Up Plan Follow up with: Vin Tran DO [Primary Care Provider] - Patient Disposition: Home Health Service Prognosis: Fair Overall status at discharge: patient is progressing back to baseline Discharge Orders: Discharge Order (Routine); Ordered 12/31/20 Ordered By: Jl Cardenas
[2020-12-31] MEDS: 0.9 % SODIUM CHLORIDE 10 ML SYRINGE IV SCH ×2 (05:57→12:06)
[2020-12-31] MEDS: INSULIN LISPRO 1 UNIT/0.01 ML UNIT SQ SCH ×2 (07:35→11:38)
[2020-12-31] MEDS: ATORVASTATIN 20 MG TABLET PO SCH (08:40)
[2020-12-31] MEDS: SODIUM BICARBONATE 650 MG TABLET PO SCH (08:40)
[2020-12-31] MEDS: DOCUSATE SODIUM 100 MG CAPSULE PO SCH (08:40)
[2020-12-31] MEDS: FLUoxetine HCL 20 MG CAPSULE PO SCH (08:40)
[2020-12-31] MEDS: cefTRIAXone 1 GM VIAL IV SCH (08:40)
[2020-12-31] MEDS: ENOXAPARIN 30 MG/0.3 ML SYRINGE SQ SCH (08:41)
== END 2020-12-31 13:15 | disposition home health service (06) | DRG 690 ==
LOC: ED 17:23 → MEDSUR 21:31
PROVIDERS: ADMIT Internal Medicine; ATTEND Internal Medicine